=== PATIENT | female | born 1985 | race Caucasian/White ===

== ENCOUNTER 2023-12-13 13:05 | Emergency (ER) | payer BC ==
[~2023-12-13] VITALS: Ht 167.6 cm; Wt 103.4 kg
[2023-12-13 13:17] VITALS: TEMP 98.6
[2023-12-13] MEDS: HYDROmorphone 1 mg/ml syringe IV ONE ×2 (13:49→15:19)
[2023-12-13] MEDS: ondansetron/PF 4mg/2ml inj IV ONE (13:51)
[2023-12-13] MEDS ORDERED: HYDR-3965 PO (14:50)
[2023-12-13 15:33] VITALS: BP 130/75; PULSE 88; RESP 16; O2SAT 100
== END 2023-12-13 15:35 | disposition home or self-care (01) ==
LOC: ER 13:05
DX: S82.831A Other fracture of upper and lower end of right fibula, initial encounter for closed fracture (principal); R42 Dizziness and giddiness; X50.1XXA Overexertion from prolonged static or awkward postures, initial encounter; Y93.89 Activity, other specified; Y92.89 Other specified places as the place of occurrence of the external cause; Y99.8 Other external cause status
CPT/HCPCS: 29515; 73610; 73630; 96374; 96375; 96376; 99285; J1170; J2405